=== PATIENT | female | born 1975 | race Two or more races ===

== ENCOUNTER 2020-05-08 09:14 | Emergency (ER) | payer OTHER ==
[~2020-05-08] VITALS: Ht 170.2 cm; Wt 90.7 kg
[2020-05-13] MEDS ORDERED: AMOXICILLIN500 MG (00:50)
[2020-05-13] MEDS ORDERED: FLAGYL500MG (00:50)
== END 2020-05-08 16:04 | disposition home or self-care (01) ==
LOC: ER 09:14
DX: N39.0 Urinary tract infection, site not specified (principal); N76.0 Acute vaginitis; N83.291 Other ovarian cyst, right side; N83.292 Other ovarian cyst, left side; R31.29 Other microscopic hematuria

== ENCOUNTER → 2020-05-13 | Emergency (ER) | payer OTHER ==
[~2020-05-13] VITALS: Ht 170.2 cm; Wt 90.7 kg
[~2020-05-13] MED LIST: AMOXICILLIN500 MG; FLAGYL500MG
== END | disposition left against medical advice (07) ==
LOC: ER 00:26
DX: Z53.20 Procedure and treatment not carried out because of patient's decision for unspecified reasons (principal)

== ENCOUNTER 2020-07-18 15:52 | Emergency (ER) | payer OTHER ==
[~2020-07-18] VITALS: Ht 175.3 cm; Wt 113.4 kg
[2020-07-18] MEDS ORDERED: KETO10TA2 PO (20:01)
[2020-07-18] MEDS ORDERED: FIORINAL 50-321 EACH PO (20:01)
[2020-07-18] MEDS ORDERED: ORPHENADRINE C100 MG PO (20:01)
== END 2020-07-18 20:26 | disposition home or self-care (01) ==
LOC: ER 15:52
DX: R42 Dizziness and giddiness (principal); M62.838 Other muscle spasm; G43.909 Migraine, unspecified, not intractable, without status migrainosus

== ENCOUNTER 2020-07-30 17:12 | Emergency (ER) | payer OTHER ==
[~2020-07-30] VITALS: Ht 152.4 cm; Wt 9.1 kg
[~2020-07-30 17:12] MED LIST changes: +FIORINAL 50-321 EACH PO; +KETO10TA2 PO; +ORPHENADRINE C100 MG PO
[2020-07-30] MEDS ORDERED: VITAMIN D3-ALO1 EACH PO (23:32)
[2020-07-30] MEDS ORDERED: MELATONIN10 M2 PO (23:32)
[2020-07-30] MEDS ORDERED: ZINC SULFATE220 M2 PO (23:32)
[2020-07-30] MEDS ORDERED: AZITHROMYCIN250 MG PO (23:32)
[2020-07-30] MEDS ORDERED: VITAMIN C WIT1000 MG PO (23:32)
[2020-07-30] MEDS ORDERED: MEDROLPACK PO (23:32)
== END 2020-07-31 05:00 | disposition home or self-care (01) ==
LOC: ER 17:12
DX: B34.9 Viral infection, unspecified (principal); R06.02 Shortness of breath; R05 Cough

== ENCOUNTER 2020-08-05 14:16 | Emergency (ER) | payer OTHER ==
[~2020-08-05] VITALS: Ht 170.2 cm; Wt 90.7 kg
[~2020-08-05 14:16] MED LIST changes: +AZITHROMYCIN250 MG PO; +MEDROLPACK PO; +MELATONIN10 M2 PO; +VITAMIN C WIT1000 MG PO; +VITAMIN D3-ALO1 EACH PO; +ZINC SULFATE220 M2 PO
[2020-08-05] MEDS ORDERED: METHYLPREDNISOLO4 M1 PO (14:25)
[2020-08-05] MEDS ORDERED: DOLOGEN CAPLET1 EACH PO (20:55)
[2020-08-05] MEDS ORDERED: PROAIR RESPICL90 MCG IH (20:55)
[2020-08-05] MEDS ORDERED: TUSNEL LIQUID178 ML PO (20:55)
== END 2020-08-05 21:13 | disposition home or self-care (01) ==
LOC: ER 14:16
DX: U07.1 COVID-19 (principal); J22 Unspecified acute lower respiratory infection; R06.02 Shortness of breath

== ENCOUNTER 2021-05-04 10:17 | Outpatient (CLI) | payer OTHER ==
[~2021-05-04 10:17] MED LIST changes: +DOLOGEN CAPLET1 EACH PO; +METHYLPREDNISOLO4 M1 PO; +PROAIR RESPICL90 MCG IH; +TUSNEL LIQUID178 ML PO
== END 2021-05-04 10:28 | disposition home or self-care (01) ==
LOC: MAMO-SONO 10:17
PROVIDERS: ATTEND Obstetrics & Gynecology
DX: N60.11 Diffuse cystic mastopathy of right breast (principal); Z12.31 Encounter for screening mammogram for malignant neoplasm of breast; N89.8 Other specified noninflammatory disorders of vagina; N94.89 Other specified conditions associated with female genital organs and menstrual cycle; N92.1 Excessive and frequent menstruation with irregular cycle

== ENCOUNTER → 2021-05-30 | Emergency (ER) | payer OTHER | END | disposition left against medical advice (07) | LOC: ER 19:04 | DX: Z53.20 Procedure and treatment not carried out because of patient's decision for unspecified reasons (principal) ==

== ENCOUNTER 2021-08-01 08:36 | Emergency (ER) | payer OTHER ==
[~2021-08-01] VITALS: Ht 170.2 cm; Wt 93.0 kg
[2021-08-01] MEDS ORDERED: DICLOFENAC POTA50 MG PO (12:27)
[2021-08-01] MEDS ORDERED: FLONASE16 GM NASAL (12:27)
[2021-08-01] MEDS ORDERED: MUCINEX DM ER1 EAC1 PO (12:27)
[2021-08-01] MEDS ORDERED: OSEL75CA PO (12:27)
== END 2021-08-01 12:35 ==
LOC: ER 08:36
DX: J10.1 Influenza due to other identified influenza virus with other respiratory manifestations (principal); J06.9 Acute upper respiratory infection, unspecified; Z20.822 Contact with and (suspected) exposure to COVID-19

== ENCOUNTER 2021-09-14 08:32 | Outpatient (CLI) | payer OTHER ==
[~2021-09-14 08:32] MED LIST changes: +DICLOFENAC POTA50 MG PO; +FLONASE16 GM NASAL; +MUCINEX DM ER1 EAC1 PO; +OSEL75CA PO
== END 2021-09-14 08:42 | disposition home or self-care (01) ==
LOC: SONOGRAMA 08:32
PROVIDERS: ATTEND Specialist
DX: N83.292 Other ovarian cyst, left side (principal); N90.1 Moderate vulvar dysplasia

== ENCOUNTER 2022-08-23 17:15 | Emergency (ER) | payer OTHER ==
[~2022-08-23] VITALS: Ht 170.2 cm; Wt 93.0 kg
== END 2022-08-24 00:04 | disposition home or self-care (01) ==
LOC: ER 17:15
DX: J40 Bronchitis, not specified as acute or chronic (principal); R05.9 Cough, unspecified; Z20.822 Contact with and (suspected) exposure to COVID-19; Z88.2 Allergy status to sulfonamides

== ENCOUNTER 2023-06-04 17:29 | Emergency (ER) | payer OTHER ==
[~2023-06-04] VITALS: Ht 170.2 cm; Wt 94.8 kg
[2023-06-04 21:59] LABS: HEMATOCRIT 32.3 % (36.0-45.00); HEMOGLOBIN 10.2 g/dL (12.0-15.00); MEAN CORPUSCULAR HEMOGLOBIN 18.6 pg (27.00-32.0); MEAN CORPUSCULAR HGB CONC 31.6 g/dl (32.0-36.0); PLATELET COUNT 306 K/uL (150-450); RED BLOOD COUNT 5.51 M/uL (4.00-6.00); RED CELL DISTRIBUTION WIDTH 19.6 % (11.5-14.5)
[2023-06-04 22:00] LABS: PH,URINE 6.5 (5.0-8.0); URINE APPEARANCE Clear; URINE BILIRRUBIN Negative (NEGATIVE); URINE BLOOD Negative; URINE COLOR Yellow; URINE GLUCOSE Negative (NEGATIVE); URINE LEUKOCYTE Negative; URINE NITRATE Negative; URINE PROTEIN Negative (NEGATIVE); URINE UROBILINOGEN 0.2 E.U./dl
[2023-06-04 22:01] LABS: MEAN CELL VOLUME 58.6 fL (80.00-100.00); URINE BACTERIA 529.1 uL (0.0-1933); URINE EPITHELIAL CELLS 11.7 uL (0.0-38.8); URINE RBC 5.4 uL (0.0-20.8); URINE WBC 6.4 uL (0.0-23.2)
[2023-06-04 22:19] LABS: ALBUMIN 3.5 gm/dL (3.4-5.0); BILIRUBIN TOTAL 0.28 mg/dL (0.3-1.2); CALCIUM 8.6 mg/dL (8.5-10.1); CREATININE SERUM 0.61 mg/dL (0.55-1.02); GFR 104.68; GLOBULINA 4.2 G/DL (2.4-3.5); POTASSIUM 3.61 mEq/L (3.5-5.1); TOTAL PROTEIN 7.7 gm/dL (6.4-8.2)
[2023-06-05] MEDS ORDERED: KETO10TA2 PO (04:52)
== END 2023-06-05 05:41 ==
LOC: ER 17:29
PROVIDERS: General Practice
DX: J06.9 Acute upper respiratory infection, unspecified (principal); Z88.2 Allergy status to sulfonamides; N83.209 Unspecified ovarian cyst, unspecified side; Z20.822 Contact with and (suspected) exposure to COVID-19; R16.0 Hepatomegaly, not elsewhere classified; I88.0 Nonspecific mesenteric lymphadenitis

== ENCOUNTER 2023-06-07 10:40 | Outpatient (CLI) | payer OTHER | END 2023-06-07 10:50 | disposition home or self-care (01) | LOC: SONOGRAMA 10:40 | PROVIDERS: ATTEND General Practice | DX: N83.209 Unspecified ovarian cyst, unspecified side (principal); Z88.2 Allergy status to sulfonamides ==

== ENCOUNTER → 2024-10-13 | Emergency (ER) | payer OTHER ==
[~2024-10-13] VITALS: Ht 170.2 cm; Wt 95.3 kg
== END | disposition left against medical advice (07) ==
LOC: ER 17:28
DX: Z53.21 Procedure and treatment not carried out due to patient leaving prior to being seen by health care provider (principal)

== ENCOUNTER 2025-02-06 10:39 | Emergency (ER) | payer OTHER ==
[~2025-02-06] VITALS: Ht 170.2 cm; Wt 54.4 kg
[2025-02-06 13:47] LABS: BASO % 0.3 % (0.1-1.2); EOS # 0.15 (0.04-0.54); EOS % 2.3 % (0.7-7.0); HEMATOCRIT 34.5 % (34.1-44.9); HEMOGLOBIN 10.5 g/dL (11.2-15.7); LYMPH # 1.35 (1.18-3.74); LYMPH % 20.8 % (19.3-53.1); MEAN CORPUSCULAR HEMOGLOBIN 19.8 pg (25.6-32.2); MONO # 0.76 (0.24-0.82); MONO % 11.7 % (4.7-12.5); NEUT # 4.17 (1.56-6.13); NEUT % 64.4 % (34.0-71.1); PLATELET COUNT 238 K/uL (163-369); RED BLOOD COUNT 5.31 M/uL (3.93-5.22); RED CELL DISTRIBUTION WIDTH 19.1 % (11.6-14.4)
[2025-02-06 14:06] LABS: COVID-19 AG POSITIVE (NEGATIVE)
[2025-02-06 14:07] LABS: INFLUENZA A AG NEGATIVE (NEGATIVE); INFLUENZA B AG NEGATIVE (NEGATIVE)
[2025-02-06 14:26] LABS: ALBUMIN 3.3 gm/dL (3.4-5.0); BILIRUBIN TOTAL 0.37 mg/dL (0.3-1.2); CALCIUM 8.5 mg/dL (8.5-10.1); CREATININE SERUM 0.46 mg/dL (0.55-1.02); GFR 144.38; GLOBULINA 3.8 G/DL (2.4-3.5); POTASSIUM 3.85 mEq/L (3.5-5.1); TOTAL PROTEIN 7.1 gm/dL (6.4-8.2)
[2025-02-06 15:34] LABS: PH,URINE 7.5 (5.0-8.0); URINE APPEARANCE Clear; URINE BILIRRUBIN Negative (NEGATIVE); URINE BLOOD NHT; URINE COLOR Yellow; URINE GLUCOSE Negative (NEGATIVE); URINE KETONE Negative (NEGATIVE); URINE LEUKOCYTE Trace; URINE NITRATE Negative; URINE PROTEIN Negative (NEGATIVE); URINE UROBILINOGEN 0.2 E.U./dl
[2025-02-06 15:38] LABS: URINE EPITHELIAL CELLS 6.3 uL (0.0-38.8); URINE RBC 10.6 uL (0.0-20.8); URINE WBC 9.4 uL (0.0-23.2)
[2025-02-06 15:56] LABS: TYPE CELLS SQUAMOUS
== END 2025-02-06 20:28 ==
LOC: ER 10:48
PROVIDERS: General Practice
DX: U07.1 COVID-19 (principal); Z88.2 Allergy status to sulfonamides

== ENCOUNTER 2025-04-29 12:35 | Emergency (ER) | payer OTHER ==
[~2025-04-29] VITALS: Ht 170.2 cm; Wt 93.9 kg
[2025-04-29] MEDS ORDERED: DEXAMETHASONE SODIUM PHOSPHATE 4 MG/ML VIAL IM STA (14:10)
[2025-04-29] MEDS ORDERED: KETOROLAC TROMETHAMINE 15 MG VIAL IM STA (14:10)
[2025-04-29] MEDS ORDERED: DIPHENHYDRAMINE HCL 50 MG/ML VIAL 1ML IM STA (14:10)
[2025-04-29] MEDS ORDERED: ACETAMINOPHEN 500 MG GEL..CAP PO STA (14:11)
[2025-04-29] MEDS ORDERED: ACETAMINOPHEN 500 MG GEL..CAP PO ONE (15:17)
[2025-04-29] MEDS ORDERED: KETOROLAC TROMETHAMINE 30 MG VIAL ONE (15:17)
[2025-04-29] MEDS ORDERED: DEXAMETHASONE SODIUM PHOSPHATE 4 MG/ML VIAL ONE (15:17)
[2025-04-29] MEDS ORDERED: DIPHENHYDRAMINE HCL 50 MG/ML VIAL 1ML ONE ×2 (15:17→15:28)
[2025-04-29 16:36] LABS: BASO % 0.3 % (0.1-1.2); EOS # 0.10 (0.04-0.54); EOS % 1.5 % (0.7-7.0); LYMPH # 2.59 (1.18-3.74); LYMPH % 38.6 % (19.3-53.1); MONO # 0.43 (0.24-0.82); MONO % 6.4 % (4.7-12.5); NEUT # 3.56 (1.56-6.13); NEUT % 53.1 % (34.0-71.1); RED CELL DISTRIBUTION WIDTH 17.7 % (11.6-14.4)
[2025-04-29 16:57] LABS: BUN CREA RATIO 28.0 (7.0-25.0); CREATININE SERUM 0.5 mg/dL (0.55-1.02); GFR 131.13; GLUCOSE FASTING 95.0 mg/dL (65-100); OSMOLALITY SERUM 285.0 MOSM/KG (275-295)
[2025-04-29] MEDS ORDERED: BUTALB-ACETAMI1 EAC2 PO (17:47)
== END 2025-04-29 18:24 | disposition home or self-care (01) ==
LOC: ER 12:45
PROVIDERS: General Practice
DX: G43.909 Migraine, unspecified, not intractable, without status migrainosus (principal); Z88.2 Allergy status to sulfonamides

== ENCOUNTER 2025-07-28 11:15 | Outpatient (CLI) | payer OTHER ==
[~2025-07-28 11:15] MED LIST changes: -0.9 % SODIUM CHLORIDE 500 ML IV ONE; -CEFTRIAXONE SODIUM 1,000 MG VIAL IV ONE; -CEFTRIAXONE SODIUM 1,000 MG VIAL ONE; -FAMOTIDINE/PF 20 MG/2 ML VIAL IV ONE; -FAMOTIDINE/PF 20 MG/2 ML VIAL ONE; -FLUCONAZOLE150 MG PO; -KETOROLAC TROMETHAMINE 30 MG VIAL IV ONE; -KETOROLAC TROMETHAMINE 30 MG VIAL ONE; -MACROBID 100 M100 MG PO; -ONDANSETRON HCL 2 MG/ML VIAL IV ONE; -ONDANSETRON HCL 2 MG/ML VIAL ONE; -PHENAZOPYRIDINE HCL 100 MG TABLET PO ONE; -PYRIDIUM200 MG PO
[2025-07-28] MEDS ORDERED: MACROBID 100 M100 MG PO (21:56)
[2025-07-28] MEDS ORDERED: PYRIDIUM200 MG PO (22:03)
[2025-07-28] MEDS ORDERED: FLUCONAZOLE150 MG PO (22:27)
== END 2025-07-28 11:18 | disposition home or self-care (01) ==
LOC: MAMO-SONO 11:15
PROVIDERS: ATTEND Obstetrics & Gynecology
DX: Z12.31 Encounter for screening mammogram for malignant neoplasm of breast (principal)

== ENCOUNTER → 2025-07-28 | Emergency (ER) | payer OTHER ==
[~2025-07-28] VITALS: Ht 170.2 cm; Wt 92.1 kg
[~2025-07-28] MED LIST changes: +0.9 % SODIUM CHLORIDE 500 ML IV ONE; +BUTALB-ACETAMI1 EAC2 PO; +CEFTRIAXONE SODIUM 1,000 MG VIAL IV ONE; +CEFTRIAXONE SODIUM 1,000 MG VIAL ONE; +FAMOTIDINE/PF 20 MG/2 ML VIAL IV ONE; +FAMOTIDINE/PF 20 MG/2 ML VIAL ONE; +FLUCONAZOLE150 MG PO; +KETOROLAC TROMETHAMINE 30 MG VIAL IV ONE; +KETOROLAC TROMETHAMINE 30 MG VIAL ONE; +MACROBID 100 M100 MG PO; +ONDANSETRON HCL 2 MG/ML VIAL IV ONE; +ONDANSETRON HCL 2 MG/ML VIAL ONE; +PHENAZOPYRIDINE HCL 100 MG TABLET PO ONE; +PYRIDIUM200 MG PO
[2025-07-28 16:19] LABS: BASO % 0.2 % (0.1-1.2); EOS # 0.04 (0.04-0.54); EOS % 0.4 % (0.7-7.0); LYMPH # 3.13 (1.18-3.74); LYMPH % 29.4 % (19.3-53.1); MEAN PLATELET VOLUME 10.80 fl (9.4-12.4); MONO # 0.64 (0.24-0.82); MONO % 6.0 % (4.7-12.5); NEUT # 6.71 (1.56-6.13); NEUT % 63.1 % (34.0-71.1); RED CELL DISTRIBUTION WIDTH 18.1 % (11.6-14.4)
[2025-07-28 16:52] LABS: INR 1.03
[2025-07-28 17:05] LABS: URINE APPEARANCE Clear; URINE BILIRRUBIN Negative (NEGATIVE); URINE BLOOD Trace; URINE COLOR Yellow; URINE GLUCOSE Negative (NEGATIVE); URINE KETONE Negative (NEGATIVE); URINE LEUKOCYTE Trace; URINE NITRATE Negative; URINE PROTEIN Negative (NEGATIVE); URINE UROBILINOGEN 0.2 E.U./dl
[2025-07-28 17:06] LABS: ALT/SGPT 31.0 U/L (12-78); AST/SGOT 11.0 U/L (15-37); BILIRUBIN TOTAL 0.37 mg/dL (0.3-1.2); BUN CREA RATIO 38.0 (7.0-25.0); CREATININE SERUM 0.4 mg/dL (0.55-1.02); GFR 168.95; GLOBULINA 4.4 G/DL (2.4-3.5); GLUCOSE FASTING 83.0 mg/dL (65-100); OSMOLALITY SERUM 281.0 MOSM/KG (275-295)
[2025-07-28 17:07] LABS: URINE EPITHELIAL CELLS 10.7 uL (0.0-38.8); URINE RBC 5.9 uL (0.0-20.8); URINE WBC 14.7 uL (0.0-23.2)
[2025-07-28 17:26] LABS: URINE BACTERIA > 9821.5 uL (0.0-1933); URINE CAST 0.14 uL (0.0-1.40)
== END | disposition home or self-care (01) ==
LOC: ER 12:49
PROVIDERS: General Practice
DX: R10.32 Left lower quadrant pain (principal); R10.20 Pelvic and perineal pain unspecified side; N39.0 Urinary tract infection, site not specified; R10.9 Unspecified abdominal pain; R11.0 Nausea; R30.0 Dysuria; Z88.2 Allergy status to sulfonamides
CPT/HCPCS: 36415; 74177; Q9965